=== PATIENT | male | born 1990 | race Asian ===

== ENCOUNTER 2023-11-15 18:17 | Emergency (ER) | payer OTHER, SELFPAY ==
--- NOTE | ~2023-11-15 | CT_ITS ---
EXAMINATION: CT abdomen pelvis w con DATE: 11/15/2023 20:19 INDICATION: RUQ pain TECHNIQUE: Computed tomography (CT) of the abdomen and pelvis was performed with 100 mL Omnipaque-350 intravenous contrast. Automated exposure control and iterative reconstruction technique were employe d. The dose-length product was 1111.33 mGy-cm. COMPARISON: Ultrasound right upper quadrant, same date. FINDINGS: Lower thorax: Unremarkable Liver: Diffuse fatty infiltration. Biliary/Gallbladder: Gallbladder is normal. No bile duct dilation. Pancreas: No mass or duct dilation. Spleen: Normal. Adrenals:No mass. Kidneys: No suspicious mass, obstructing stone, or hydronephrosis. GI tract: No small or large bowel dilation. Normal appendix. Diverticulosis without diverticulitis. Mesentery/Peritoneum: No ascites, mass, or free air. Retroperitoneum: No mass. Pelvis: Pelvic organs are within normal limits. Soft Tissues: Soft tissues and body wall unremarkable. Bones: No acute osseous finding. Bilateral pars defects at L5-S1, with a grade 1 anterolisthesis. IMPRESSION: Hepatic steatosis. Otherwise, no acute abdominopelvic process detected. Reviewed, dictated and finalized at location K.
--- NOTE | ~2023-11-15 | US_ITS ---
EXAMINATION: US right upper quadrant DATE: 11/15/2023 19:11 INDICATION: RUQ pain TECHNIQUE: Multiple grayscale and Doppler ultrasound images of the right upper quadrant were obtained . COMPARISON: None available. FINDINGS: The visualized portions of the pancreas are normal. The liver is normal size with increased echogenicity. No surface nodularity. Normal hepatopetal flow in the main portal vein. The gallbladde r is normal with no abnormal wall thickening, pericholecystic fluid or stones. The common bile duct m easures 6 mm. There was no sonographic Rivers sign. IMPRESSION: Echogenic liver, most commonly due to steatosis but also can be seen with hepatitis and fibrosis. Reviewed, dictated and finalized at location K. IMPRESSION: Echogenic liver, most commonly due to steatosis but also can be seen with hepat itis and fibrosis.
[2023-11-15 18:22] VITALS: BP 114/66; PULSE 75; RESP 16; TEMP 36.6; O2SAT 97
--- NOTE | 2023-11-15 18:27 | ED.ABDPAIN ---
HPI - Abdominal Pain General Chief Complaint: Abdominal Pain Stated Complaint: abd pain Time Seen by Provider: 11/15/23 18:20 History of Present Illness HPI narrative: 33-year-old male presents to emergency department for right upper quadrant abdominal pain that started in the middle the night around 1:00 a.m.. Patient states the pain will come out out of his sleep. States that has been intermittent since. Describes it as a sharp and cramping pain that is intermittent. He denies any aggravating or alleviating factors. States he had salad with beans and chicken for dinner last night. He reports some nausea but no emesis. Denies fever, dysuria or hematuria, diarrhea. Last bowel movement was just prior to arrival and normal. Denies chest pain or shortness of breath, cough or congestion. No prior abdominal surgeries. States the pain was more severe about 15 minutes ago but has since subsided. Related Data Allergies Allergy/AdvReac Type Severity Reaction Status Date / Time No Known Allergies Allergy Verified 11/15/23 18:33 Review of Systems Review of Systems: CONSTITUTIONAL: Denies fever, chills, or sweats. EYES: Denies visual changes, redness, or discharge. ENT: Denies rhinorrhea, congestion, sore throat, or otalgia. CARDIOVASCULAR: Denies chest pain, palpitations, or edema. RESPIRATORY: Denies cough or dyspnea. GASTROINTESTINAL: See HPI GENITOURINARY: Denies dysuria or hematuria. SKIN: Denies rash or itching. MUSCULOSKELETAL: Denies back pain, joint pain, or myalgia. NEUROLOGIC: Denies headache, numbness, or weakness. PSYCHIATRIC: Denies anxiety or depression. Exam Narrative: GENERAL: Well-appearing, well-nourished, and in no acute distress. HEAD: Normocephalic, atraumatic. ENT: Nares clear, no rhinorrhea or epistaxis. Mucous membranes moist. NECK: Supple. CHEST: Clear to auscultation. No respiratory distress. HEART: Regular rate and rhythm. No murmur heard. Normal peripheral pulses. ABDOMEN: Quiet bowel sounds. Abdomen soft with tenderness in the right upper quadrant without rebound, guarding or rigidity. Negative Rivers's and McBurney's. No CVA tenderness. EXTREMITIES: Normal range of motion. No edema. SKIN: Warm, dry, no rash. NEURO: No focal deficits. Alert and oriented x3 Course Vital Signs Vital signs: Vital Signs Temperature 97.8 F 11/15/23 18:22 Pulse Rate 75 11/15/23 18:22 Respiratory Rate 16 11/15/23 18:22 Blood Pressure 114/66 11/15/23 18:22 Pulse Oximetry 97 11/15/23 18:22 Temperature 97.8 F 11/15/23 18:22 Pulse Rate 75 11/15/23 18:22 Respiratory Rate 16 11/15/23 18:22 Blood Pressure 114/66 11/15/23 18:22 Pulse Oximetry 97 11/15/23 18:22 MDM - Abdominal Pain MDM Narrative Medical decision making narrative: 33-year-old male presents to emergency department for right upper quadrant abdominal pain that started overnight. Chest vitals stable. Exam is significant for the above. Patient is nontoxic and well appearing on exam. CBC without leukocytosis or anemia. Chemistries with ALT of 69, otherwise unremarkable. Lipase normal. Lactic acid normal at 0.8. Ultrasound shows echogenic liver, otherwise no acute findings, no cholelithiasis or cholecystitis. CT abdomen pelvis again shows hepatic steatosis, otherwise no acute findings. Patient received IV fluids and Toradol with improvement in symptoms. Workup discussed. Advised to take Tylenol ibuprofen follow-up closely with PCP. Strict ED return precautions discussed. He is agreeable to plan verbalized understanding. Discharged in stable condition. Lab Data 11/15/23 18:43 11/15/23 18:43 Labs: Lab Results 11/15/23 Range/Units 18:43 WBC 7.9 (4.5-10.0) K/mm3 RBC 5.51 (4.6-6.20) M/mm3 Hgb 15.3 (14.0-18.0) g/dL Hct 47.5 (42.0-52.0) % MCV 86.2 (80-100) fl MCH 27.8 (26-34) pg MCHC 32.2 (32-36) g/dl RDW 13.2 (11.5-14.5) % Plt Count 27
[2023-11-15] MEDS: ONDANSETRON INJ 4 MG/2 ML VIAL IV PUSH (18:45)
[2023-11-15] MEDS: KETOROLAC 30 MG/ML VIAL (*BKC) 15 MG IV PUSH (18:45)
[2023-11-15] MEDS: SODIUM CHLORIDE 0.9% IV 1,000 ML 999 ML IV CONT (18:45)
[2023-11-15 18:55] LABS: Basophils Absolute Auto 0.1 K/mm3 (0.0-0.1); Basophils Percent Auto 0.6 % (0.2-1.2); Eosinophils Absolute Auto 0.2 K/mm3 (0-0.3); Eosinophils Percent Auto 2.9 % (0-4.4); Hematocrit 47.5 % (42.0-52.0); Hemoglobin 15.3 g/dL (14.0-18.0); Immature Granulocyte Absolute 0.02 K/mm3 (0.00-0.031); Immature Granulocyte Percent A 0.3 % (0-0.5); Lymphocytes Absolute Auto 2.49 K/mm3 (0.9-3.2); Lymphocytes Percent Auto 31.5 % (18.3-44.2); Mean Corpuscular HGB Conc 32.2 g/dl (32-36); Mean Corpuscular Hemoglobin 27.8 pg (26-34); Mean Corpuscular Volume 86.2 fl (80-100); Mean Platelet Volume 9.5 fl (7.4-10.4); Monocytes Absolute Auto 0.6 K/mm3 (0.1-0.6); Monocytes Percent Auto 7.8 % (2.6-8.5); Neutrophils Absolute Auto 4.5 K/mm3 (1.3-6.7); Neutrophils Percent Auto 56.9 % (45.5-73.1); Platelet Count Result 279 k/mm3 (150-375); Red Blood Count 5.51 M/mm3 (4.6-6.20); Red Cell Distribution Width 13.2 % (11.5-14.5); White Blood Count 7.9 K/mm3 (4.5-10.0)
[2023-11-15 19:06] LABS: Alanine Aminotransferase 69 U/L (6-50); Albumin Level 5.1 g/dL (3.5-5.1); Alkaline Phosphatase 62 U/L (38-126); Anion Gap 11 mmol/L (4-12); Aspartate Amino Transferase 35 U/L (17-59); Bilirubin,Total 0.7 mg/dL (0.2-1.3); Blood Urea Nitrogen 15 mg/dL (9-20); Calcium 9.4 mg/dL (8.4-10.2); Carbon Dioxide 22 mmol/L (22-30); Chloride 106 mmol/L (98-107); Estimated CRCL calculation 134 ml/min; Estimated Glomerular Filt Rate > 60; Glucose 93 mg/dL (65-110); Lipase 109 U/L (23-300); Potassium 3.9 mmol/L (3.4-5.0); Sodium 139 mmol/L (137-145)
[2023-11-15 19:07] LABS: Lactic Acid Reflex 0.8 mmol/L (0.7-2.0)
[2023-11-15 21:16] VITALS: BP 133/86; PULSE 75; RESP 16; O2SAT 98
== END 2023-11-15 21:17 | disposition home or self-care (01) ==
PROVIDERS: Emergency Provider Physician Assistant
DX: R10.11 Right upper quadrant pain (principal); K76.0 Fatty (change of) liver, not elsewhere classified
CPT/HCPCS: 36415; 74177; 76705; 80053; 83605; 83690; 85025; 96361; 96374; 96375; 99284; J1885; J2405; J7030; Q9967